=== PATIENT | male | born 1985 | race Caucasian/White ===

== ENCOUNTER 2019-08-30 14:35 | Emergency (ER) | payer BC ==
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
--- NOTE | 2019-08-30 17:23 | ULTRASOUND REPORT ---
EXAMINATION: Left Lower Extremity Ultrasound, Venous Duplex Doppler EXAM DATE: 08/30/2019 5:02 PM TECHNIQUE: Color Doppler, spectral Doppler, and ying scale evaluation of the left lower extremity fro m the common femoral vein to the popliteal vein. Evaluation of the deep venous system of the lower e xtremity was performed. INDICATION: left leg pain swelling, recent injury PROCEDURE: Duplex scan of extremity veins including responses to compression and other maneuvers; un ilateral study FINDINGS: The deep venous system of the left leg appears normal, with normal flow and compressibilit y. No filling defects are seen. In the area of injury there is a 7.7 x 1.7 cm complex fluid collecti on, likely a hematoma. IMPRESSION: 1. Negative for DVT. Dictated by: Regan Varghese MD on 08/30/2019 5:16 PM. .
== END 2019-08-30 16:36 | disposition home or self-care (01) ==
LOC: ER 14:35
DX: S80.12XA Contusion of left lower leg, initial encounter (principal); M79.662 Pain in left lower leg; W21.05XA Struck by basketball, initial encounter
CPT/HCPCS: 99283